=== PATIENT | male | born 1995 | race Hispanic/Latino ===

== ENCOUNTER 2023-05-18 11:13 | Emergency (ER) | payer OTHER, SELFPAY ==
[2023-05-18 11:18] VITALS: BP 123/77; PULSE 95; RESP 18; TEMP 36.6; O2SAT 93
--- NOTE | 2023-05-18 11:55 | ED.VIS.BACK ---
HPI <SAIMA Rivers - Last Filed: 05/18/23 14:33> History of Present Illness Chief Complaint: Back Narrative Narrative: Patient presenting today with back pain to the left mid area that he has had since this morning after he was carrying a piano up the stairs with another coworker, patient was carrying the load towards the top of the stairs and he felt a cracking sensation on the left side of his back and felt immediate pain. He denies any bowel/bladder incontinence, fever or chills, saddle paresthesia, and urinary symptoms. He did not fall during this event and denies any direct trauma to his back. He denies any shortness of breath or difficulty breathing. PFSH <SAIMA Rivers - Last Filed: 05/18/23 14:33> PFSH Home Medications cyclobenzaprine 10 mg tablet 10 mg PO TID PRN Muscle Spasm 5 days #15 TABLETS 05/18/23 [Rx Last Taken Unknown] naproxen 500 mg tablet (Naprosyn) 500 mg PO BID PRN pain 7 days #14 tabs 05/18/23 [Rx Last Taken Unknown] Allergy/AdvReac Type Severity Reaction Status Date / Time No Known Allergies Allergy Verified 05/18/23 11:20 Social History Smoking Status: Light Smoker (<10/day) ROS <SAIMA Rivers - Last Filed: 05/18/23 14:33> ROS ED Constitutional Constitutional ED: Denies chills or fever(s) Cardiovascular Cardiovascular: Denies chest pain or palpitations Respiratory/Chest Respiratory/Chest: Denies cough or dyspnea Gastrointestinal Gastrointestinal: Denies abdominal pain, nausea or vomiting Genitourinary Genitourinary ED: Denies dysuria, hematuria or urinary urgency Musculoskeletal Musculoskeletal: Reports back pain Integumentary Denies Abrasions or rash Neurologic Neurologic: Denies paresthesias or weakness EXAM <SAIMA Rivers - Last Filed: 05/18/23 14:33> Physical Exam Const Vital Signs: 05/18/23 11:18 Temperature 98 F Temperature Source Temporal Pulse Rate 95 Respiratory Rate 18 Blood Pressure 123/77 H Blood Pressure Mean 92 Pulse Ox 93 Oxygen Delivery Method Room Air Positive well nourished, well developed and no apparent distress General Appearance ED: well developed HEENT Reports normocephalic and head/scalp atraumatic Mouth ED: Yes moist mucous membranes normal Eyes PERRL and EOMs intact bilaterally Neck full ROM and supple Chest Wall inspection of chest normal Resp normal respiratory effort and clear to auscultation bilaterally Cardio regular rate and regular rhythm GI soft to palpation, non-tender, non-distended and no masses Back/Spine normal ROM and normal to inspection Back/Spine Narrative: Left thoracic paraspinal tenderness, no midline tenderness to the cervical, thoracic, lumbar or sacral spine. Cervical Spine: cervical ROM normal Thoracic Spine / Upper Back: thoracic ROM normal Lumbar Spine / Lower Back: lumbar ROM normal Extremity normal to inspection and full ROM Extremity Narrative: DP pulses 2+ bilaterally, sensation intact distally Neuro oriented x3, CN's II-XII intact bilaterally, moves all extremities, no focal motor deficits and no sensory deficits noted Neuro Narrative: Normal gait, patient is able to walk on his tippy toes and on his heels, normal one legged squat Sensorium / Orientation: awake and alert Motor Exam: strength 5/5 throughout Psych mental status grossly normal and thought process normal Skin no rashes or lesions noted and no wounds <Dr. Richard Olivera MD - Last Filed: 05/18/23 16:53> Physical Exam Const Vital Signs: 05/18/23 11:18 Temperature 98 F Temperature Source Temporal Pulse Rate 95 Respiratory Rate 18 Blood Pressure 123/77 H Blood Pressure Mean 92 Pulse Ox 93 Oxygen Delivery Method Room Air [facility] <SAIMA Rivers - Last Filed: 05/18/23 14:33> [facility] Narrative Medical decision making narrative: Patient presenting today due to left sided thoracic back pain that started today as he was helping a coworker carry a piano up several stairs and felt a cracking sensation to the left side of his back and immediate pain. He does not have any tenderness to his left-sided rib cage, no midline tenderness in his back. No symptoms concerning for cauda equina syndrome or spinal abscess. He is well-appearing and in no acute distress, vitals are unremarkable. He does have marked tenderness to the left paraspinal muscles of the thoracic spine. He was given Toradol here and will be given Flexeril and naproxen for home. He has been given referral for PCP and will be discharged home in stable condition. He is comfortable with plan. <Dr. Richard Olivera MD - Last Filed: 05/18/23 16:53> [facility] MDM Narrative Medical decision making narrative: Patient presenting today due to left sided thoracic back pain that started today as he was helping a coworker carry a piano up several stairs and felt a cracking sensation to the left side of his back and immediate pain. He does not have any tenderness to his left-sided rib cage, no midline tenderness in his back. No symptoms concerning for cauda equina syndrome or spinal abscess. He is well-appearing and in no acute distress, vitals are unremarkable. He does have marked tenderness to the left paraspinal muscles of the thoracic spine. He was given Toradol here and will be given Flexeril and naproxen for home. He has been given referral for PCP and will be discharged home in stable condition. He is comfortable with plan. I have personally performed a face to face assessment of the patient and have reviewed the CARLOS Note. I performed a substantive portion of the visit including all aspects of the following. My felix findings include: History is remarkable for back pain after lifting a piano. Complains of pain in the paradorsal region. He denies shortness of breath or difficulty breathing. [place] paresthesia, anesthesia motors upper extremity. There is no history of direct trauma. He denies chest pain. No shortness of breath. Exam is patient has reproducible paradorsal pain. There is no crepitus subcutaneous air. There is no midline tenderness. Breath sounds are symmetric. There is no hyperresonance to percussion. Heart is regular. There is no murmur, gallop or rub. Pulses upper and lower extremity are symmetric. Abdomen is benign Medical Decision Making patient has muscular back pain due to muscle strain from lifting a piano. He was treated with NSAIDs since he has no contraindication. Other additions or changes: [None] Discharge Plan Triage Chief Complaint: Back ED Midlevel Provider: Richelle Gilman ED Provider: Richard Olivera Dx/Rx/DC Orders Clinical Impression: Strain of thoracic back region Instructions: ED Back Pain (Acute or Chronic) Prescriptions: New cyclobenzaprine 10 mg tablet 10 mg PO TID PRN (Reason: Muscle Spasm) 5 Days Qty: 15 0RF naproxen [Naprosyn] 500 mg tablet 500 mg PO BID PRN (Reason: pain) 7 Days Qty: 14 0RF Primary Care Provider: Care Physician,No Primary Referrals: Virgilio Martínez, [Med Staff - Head Teller] - 1 Week if not improving Care Physician,No Primary [Primary Care Provider] - Activity Restrictions/Additional Instructions: I have given you a PCP referral to follow-up with. Please return for any worsening of your symptoms. You can also try Tylenol for your pain. Disposition Disposition: Home, Self Care Discharge Date/Time: 05/18/23 12:30
[2023-05-18] MEDS: Ketorolac 15 MG/ML Vial IM (12:00)
== END 2023-05-18 12:30 | disposition home or self-care (01) ==
LOC: ED 12:14
PROVIDERS: Emergency Provider Emergency Medicine; Visit Provider Emergency Medicine
DX: S29.012A Strain of muscle and tendon of back wall of thorax, initial encounter (principal); F17.200 Nicotine dependence, unspecified, uncomplicated; X58.XXXA Exposure to other specified factors, initial encounter
CPT/HCPCS: 96372; 99284